=== PATIENT | female | born 1995 | race American Indian/Alaskan Native ===

== ENCOUNTER 2017-04-16 12:35 | Emergency (ER) | payer SELFPAY ==
[2017-04-16 13:19] VITALS: BP 125/87
--- NOTE | 2017-04-16 15:43 | Emergency Department Report ---
Eye Injury/Foreign Body - HPI Duration: 1 week Eye Location: Right Severity: Mild Tetanus Status: Up to Date Eye Symptoms: Eye Pain: Yes, Blurred Vision: Yes, Eye Redness: Yes, Grinding/ Hammering Metal: No, Used Eye Protection: No, Contact Lens Use: No, Recalls Injury: No, Photophobia: Yes Other History: 22-year-old female no past medical history presents with complaint of foreign body sensation right eye. Denies any direct eye trauma denies anything splashing into her eye. States she has had some redness and has foreign body sensation. Denies any facial swelling or any purulent drainage from eye. Tetanus is up-to-date as per patient ED Review of Systems ROS: Stated complaint: BLURRED VISION/BOTH EYES Other details as noted in HPI ED Past Medical Hx - Past Medical History Previous Medical History?: No - Surgical History Additional Surgical History: EXPLORATORY LAPAROTOMY - Social History Smoking Status: Current Some Day Smoker Substance Use Type: Alcohol - Medications Home Medications: Home Medications Medication Instructions Recorded Confirmed Last Taken Type Erythromycin [Erythromycin Ophth 10 applic OP BID #1 tube 04/16/17 Unknown Rx Oint] Glycerin/Propylene Glycol 1 drop OP Q4H #1 bottle 04/16/17 Unknown Rx [Artificial Tears Drops] Ibuprofen [Motrin] 600 mg PO Q8H PRN #30 tablet 04/16/17 Unknown Rx Eye Injury Exam - Exam General: Vital signs noted. No distress. Alert and acting appropriately. - Visual Acuity Left Vision Acuity Degree: 20/20 Right Vision Acuity Degree: 20/15 Eye Exam: Right Injection, Right Chemosis, Right Fluorescein Uptake (visible one to 2 cm corneal abrasion not overlying the pupil), Neither EOMI Bilateral Vision Acuity Degree: 20/15 Eye Exam: Left Injection, Right EOMI ED Course Vital Signs 04/16/17 13:13 Temperature 99.2 F Pulse Rate 74 Respiratory 17 Rate Blood Pressure 125/87 O2 Sat by Pulse 100 Oximetry ED Medical Decision Making - Medical Decision Making A/P: corneal abrasion 1-erythromycin ointment, Motrin when necessary artificial tears 2-vision is intact on exam 3-follow-up with ophthalmology Critical care attestation.: If time is entered above; I have spent that time in minutes in the direct care of this critically ill patient, excluding procedure time. ED Disposition Clinical Impression: Corneal abrasion, right Qualifiers: Encounter type: initial encounter Qualified Code(s): S05.01XA - Injury of conjunctiva and corneal abrasion without foreign body, right eye, initial encounter Disposition: TO HOME OR SELFCARE Is pt being admited?: No Does the pt Need Aspirin: No Condition: Stable Instructions: Corneal Abrasion (ED) Prescriptions: Erythromycin [Erythromycin Ophth Oint] 10 applic OP BID #1 tube Glycerin/Propylene Glycol [Artificial Tears Drops] 1 drop OP Q4H #1 bottle Ibuprofen [Motrin] 600 mg PO Q8H PRN #30 tablet PRN Reason: Pain Referrals: HAYDEN CODY MD [Staff Physician] - 3-5 Days GENARO WANG MD [Staff Physician] - 3-5 Days Forms: Work/School Release Form(ED) Time of Disposition: 16:10
[2017-04-16] MEDS ORDERED: FUL-GLO OP ONE (15:44)
[2017-04-16] MEDS ORDERED: MOTRIN PO ONE (15:44)
== END 2017-04-16 16:20 | disposition home or self-care (01) ==
LOC: ED 12:35
DX: S05.01XA Injury of conjunctiva and corneal abrasion without foreign body, right eye, initial encounter (principal); F17.200 Nicotine dependence, unspecified, uncomplicated; X58.XXXA Exposure to other specified factors, initial encounter; Y93.89 Activity, other specified; Y99.8 Other external cause status; Y92.89 Other specified places as the place of occurrence of the external cause
CPT/HCPCS: 99283

== ENCOUNTER 2017-05-26 13:43 | Emergency (ER) | payer SELFPAY ==
[2017-05-26 16:20] LABS: Alanine Aminotransferase 16 units/L (7-56); Albumin 4.1 g/dL (3.9-5); Albumin/Globulin Ratio 1.1 %; Alkaline Phosphatase 91 units/L (35-129); BUN/Creatinine Ratio 11.42; Blood Urea Nitrogen 8 mg/dL (7-17); Calcium 9.3 mg/dL (8.4-10.2); Carbon Dioxide 26 mmol/L (22-30); Glucose 87 mg/dL (65-100); Potassium 3.7 mmol/L (3.6-5.0); Sodium 139 mmol/L (137-145); Total Protein 7.9 g/dL (6.3-8.2)
[2017-05-26 16:27] LABS: Anion Gap 17 mmol/L
[2017-05-26 17:59] LABS: Basophils % (Auto) 0.6 % (0.0-1.8); Eosinophils % (Auto) 3.2 % (0.0-4.3); Hematocrit 33.7 % (30.3-42.9); Hemoglobin 10.5 gm/dl (10.1-14.3); Mean Corpuscular HGB Conc 31 % (30-34); Mean Corpuscular Hemoglobin 24 pg (28-32); Mean Corpuscular Volume 76 fl (79-97); Platelet Count 338 K/mm3 (140-440); Red Blood Count 4.45 M/mm3 (3.65-5.03); Red Cell Distribution Width 14.9 % (13.2-15.2); White Blood Count 4.4 K/mm3 (4.5-11.0)
[2017-05-26 18:11] LABS: Bilirubin,Urine SM (Negative); Blood,Urine LG (Negative); Ketones,Urine TR mg/dL (Negative); Leukocyte Esterase,Urine NEG (Negative); Mucus,Urine 3+ /HPF; Nitrite,Urine NEG (Negative)
--- NOTE | 2017-05-27 08:24 | Ultrasound Report ---
ULTRASOUND OB LESS THAN 14 WEEKS FETUS ULTRASOUND OB TRANSVAGINAL HISTORY: Vaginal bleeding, beta hCG level 71.5. TECHNIQUE: Transabdominal and transvaginal ultrasound with color and spectral doppler interrogation. The uterus measures 6.0 x 3.3 x 4.5 cm. No uterine mass is appreciated. The cervix is unremarkable. Trace pelvic fluid in the cul-de-sac appears physiologic. Images through the bladder are unremarkable. The endometrial stripe measures 6 mm. No intrauterine gestational sac or endometrial fluid is appreciated. No heart tones. The right ovary is unremarkable and measures 3.0 x 1.3 x 2.9 cm. The left ovary measures 3.1 x 2.7 x 2.9 cm and contains a slightly complex solid area measuring 1.3 cm which probably represents a corpus luteum cyst. No pole or ring of fire in this area. IMPRESSION: No intrauterine is visualized. The endometrial stripe measures 6 mm. This may represent a spontaneous . Please correlate with the patient's clinical presentation. Probable corpus luteum cyst in the left ovary.
== END 2017-05-27 08:01 | disposition left against medical advice (07) ==
LOC: ED 13:43
DX: O46.90 Antepartum hemorrhage, unspecified, unspecified trimester (principal); Z53.21 Procedure and treatment not carried out due to patient leaving prior to being seen by health care provider
CPT/HCPCS: 36415; 76801; 76817; 80053; 81001; 84702; 85025; 86900; 86901

== ENCOUNTER 2020-05-15 15:20 | Outpatient (CLI) | payer MEDICAID ==
[2020-05-15 15:59] VITALS: BP 111/63
[2020-05-15 16:52] LABS: Mucus,Urine 2+ /HPF
[2020-05-15 16:53] LABS: Bilirubin,Urine NEG (Negative); Blood,Urine NEG (Negative); Color,Urine Amber (Yellow)
[2020-05-15] MEDS ORDERED: LACTATED RINGERS 1,000 ML IV SCH (17:00)
== END 2020-05-15 17:26 | disposition home or self-care (01) ==
LOC: APU 15:20 → TRG 15:20
PROVIDERS: ATTEND Obstetrics & Gynecology
DX: O26.893 Other specified pregnancy related conditions, third trimester (principal); R10.2 Pelvic and perineal pain; M54.9 Dorsalgia, unspecified; O47.03 False labor before 37 completed weeks of gestation, third trimester; Z3A.37 37 weeks gestation of pregnancy
CPT/HCPCS: 59025; 81001; 96360; J7120

== ENCOUNTER 2020-05-17 09:32 | Outpatient (CLI) | payer MEDICAID ==
[2020-05-17 10:07] VITALS: BP 120/74
--- NOTE | 2020-05-17 12:06 | Ultrasound Report ---
ULTRASOUND OBSTETRIC LIMITED ULTRASOUND BIOPHYSICAL PROFILE INDICATION / CLINICAL INFORMATION: well being, decreased movement. COMPARISON: None available. FINDINGS: BREATHING MOVEMENT = 2 GROSS BODY MOVEMENT = 2 TONE = 2 QUALITATIVE AMNIOTIC FLUID VOLUME = 2 TOTAL BIOPHYSICAL SCORE = 8/8 AMNIOTIC FLUID INDEX (cm) = 12 PRESENTATION: Cephalic. HEART RATE (beats per minute): 143 ADDITIONAL FINDINGS: None. IMPRESSION: 1. Biophysical Score = 8/8 Signer Name: Abelardo Richardson MD Signed: 05/17/2020 12:02 PM Workstation Name: [id number]
--- NOTE | 2020-05-17 12:06 | Ultrasound Report ---
ULTRASOUND OBSTETRIC LIMITED ULTRASOUND BIOPHYSICAL PROFILE INDICATION / CLINICAL INFORMATION: well being, decreased movement. COMPARISON: None available. FINDINGS: BREATHING MOVEMENT = 2 GROSS BODY MOVEMENT = 2 TONE = 2 QUALITATIVE AMNIOTIC FLUID VOLUME = 2 TOTAL BIOPHYSICAL SCORE = 8/8 AMNIOTIC FLUID INDEX (cm) = 12 PRESENTATION: Cephalic. HEART RATE (beats per minute): 143 ADDITIONAL FINDINGS: None. IMPRESSION: 1. Biophysical Score = 8/8 Signer Name: Abelardo Richardson MD Signed: 05/17/2020 12:01 PM Workstation Name: [id number]
== END 2020-05-17 11:44 | disposition home or self-care (01) ==
LOC: APU 09:32 → TRG 09:32
PROVIDERS: ATTEND Obstetrics & Gynecology
DX: O36.8130 Decreased fetal movements, third trimester, not applicable or unspecified (principal); Z3A.36 36 weeks gestation of pregnancy
CPT/HCPCS: 59025; 76815; 76819

== ENCOUNTER 2020-06-21 20:30 | Inpatient (IN) | payer MEDICAID ==
--- NOTE | 2020-06-21 20:56 | History and Physical Report ---
History of Present Illness Date of examination: 06/21/20 Date of admission: 06/21/20 20:30 Chief complaint: here for IOL History of present illness: Pt presents for IOL. no c/o at this time. EFW on 06/06/20 was 8lbs 15oz EDC Confirmation: 06/12/2020 Gestational Age: 5 2/7 weeks Past History : 2 Term Births: 0 Premature Births: 0 Living Children: 0 Para: 0 Mult. Births: 0 Prev : 0 Aborta: 1 Elect. Ab: 0 Spont. Ab: 1 Ectopics: 0 # 1 Delivery date: 05/25/2017 Weeks Gestation: 6 Past Medical History: Reviewed history from 11/27/2018 and no changes required: Negative Past Medical History Past Surgical History: Reviewed history from 07/22/2017 and no changes required: expl. lap. left ovarian mass. 2016 Past Medical History Surgery (Non-biological chemist): expl. lap. left ovarian mass. 2016 Abnormal PAP: negative KRISTIN Exposure: negative Infertility: negative Uterine Anomaly: negative Uterine Surgery (not C/S): negative Other Gynecologic Problems: negative Social Hx: Patient is single bf x 2 years. 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 Infection History Hx of STD: none HIV Risk Eval: low risk Hepatitis B Risk Eval: low risk Genetic History Congenital Heart Defect: Mom: no Dad: no Chandler Disease: Mom: no Dad: no Thalassemia Mom: no Dad: no Neural Tube Defect Mom: no Dad: no Down's Syndrome Mom: no Dad: no Jean Paul-Sachs Mom: no Dad: no Sickle Cell Disease/Trait Mom: no Dad: no Hemophilia Mom: no Dad: no Muscular Dystrophy Mom: no Dad: no Cystic Fibrosis Mom: no Dad: no [place] Chorea Mom: no Dad: no Mental Retardation Mom: no Dad: no Fragile X Mom: no Dad: no Other Genetic/Chromosomal Disorder Mom: no Dad: no Child w/other defect Mom: no Dad: no Enviromental Exposures Xray Exposure: no Medication, drug, or alcohol use since LMP: no Chemical/Other Exposure: no Exposure to Cat Liter: no Hx of Parvovirus (Fifth Disease): no Occupational Exposure to Children: none Active Medications (reviewed today): DEPO-PROVERA 150 MG/ML INTRAMUSCULAR SUSPENSION PREFILLED SYRINGE (MEDROXYPROGESTERONE ACETATE) Bring to office for administration of injection BORIC ACID POWD (BORIC ACID) VAG SUPP 600 MG () 1 daily x 7days Current Allergies (reviewed today): No known allergies Past History Past Medical History: no pertinent history Past Surgical History: other (laproscopy for ovarian cyst) 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: 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: abnormal PAP smear Family/Genetic History: none - Obstetrical History Expected Date of Delivery: 06/12/20 Actual Gestation: 41 Week(s) 2 Day(s) : 1 Medications and Allergies Allergies Allergy/AdvReac Type Severity Reaction Status Date / Time No Known Allergies Allergy Verified 04/16/17 13:19 Home Medications Medication Instructions Recorded Confirmed Last Taken Type Erythromycin [Erythromycin Ophth 10 applic OP BID #1 tube 04/16/17 06/21/20 Unknown Rx Oint] Glycerin/Propylene Glycol 1 drop OP Q4H #1 bottle 04/16/17 06/21/20 Unknown Rx [Artificial Tears Drops] Ibuprofen [Motrin] 600 mg PO Q8H PRN #30 tablet 04/16/17 06/21/20 Unknown Rx Review of Systems All systems: negative - Obstetrical FHR: category 1 Cervical Dilatation: 1.5 (mid position/soft) Cervical Effacement Percentage: 60 station: -1 Results All other labs normal. Assessment and Plan - Patient Problems (1) 41 weeks gestation of Current Visit: Yes Status: Acute Plan to address problem: admit for iol start antibx for posiitve gbs status (2) Positive GBS test Current Visit: Yes Status: Acute Plan to address problem: -start antibx
[2020-06-21] MEDS ORDERED: AMPICILLIN/NS 2 GM/100 ML 2 GM/100 ML BAG IV ONE (21:17)
[2020-06-21] MEDS ORDERED: ACETAMINOPHEN 325 MG TAB PO PRN (21:17)
[2020-06-21] MEDS ORDERED: ePHEDrine SULFATE 50 MG/1 ML INJ IV PRN (21:17)
[2020-06-21] MEDS ORDERED: MINERAL OIL 30 ML ORAL LIQD PO PRN (21:17)
[2020-06-21] MEDS ORDERED: LIDOCAINE (2%) 20 MG/1 ML VIAL 20 ML MDV INFILTRATI ONE (21:17)
[2020-06-21] MEDS ORDERED: TERBUTALINE 1 MG/1 ML INJ SUB-Q PRN (21:17)
[2020-06-21] MEDS ORDERED: DINOPROSTONE 10 MG VAG SUPP VG ONE (23:00)
[2020-06-21 23:09] LABS: Hemoglobin 7.8 gm/dl (10.1-14.3); Mean Corpuscular HGB Conc 31 % (30-34); Mean Corpuscular Volume 72 fl (79-97); Platelet Count 274 K/mm3 (140-440); Red Blood Count 3.45 M/mm3 (3.65-5.03); Red Cell Distribution Width 17.2 % (13.2-15.2)
[2020-06-21] MEDS ORDERED: OXYTOCIN DRIP 30 UNITS/500 ML BAG IV SCH (23:45)
[2020-06-21] MEDS: LACTATED RINGERS 1,000 ML IV SCH (23:54)
--- NOTE | 2020-06-22 00:39 | Event Note ---
Date: 06/22/20 Informed that there is no cervidil in the hospital. Will start low dose pitocin at this time.
[2020-06-22] MEDS: AMPICILLIN/NS 1 GM/50 ML 1 GM/50 ML BAG IV SCH ×5 (04:10→23:18)
--- NOTE | 2020-06-22 08:13 | Progress Note ---
Assessment and Plan plan for AM care and breakfast, then will start active management of pitocin for IOL. Plan discussed with patient and RN. all questions addressed. - Patient Problems (1) 41 weeks gestation of Current Visit: Yes Status: Acute (2) Positive GBS test Current Visit: Yes Status: Acute Plan to address problem: Ampicillin q4hr in active labor Subjective - Subjective Date of service: 06/22/20 Principal diagnosis: 41+3 IOL for postdates; pitocin Patient reports: movement normal, contractions, no loss of fluid, no vaginal bleeding Objective - Vital Signs Vital Signs: Vital Signs - 12hr 06/21/20 06/21/20 06/21/20 21:50 23:55 23:57 Temperature 98.3 F Pulse Rate 78 82 82 Respiratory 18 Rate Blood Pressure 134/83 114/58 Blood Pressure 114/58 [Left] 06/22/20 06/22/20 06/22/20 08:00 08:01 08:02 Temperature 98.4 F Pulse Rate 68 81 68 Respiratory 18 Rate Blood Pressure 147/83 131/79 Blood Pressure 131/79 [Left] - Exam Breasts: normal Cardiovascular: Regular rate Lungs: Normal air movement Abdomen: Present: normal appearance, soft Vulva: both: normal Uterus: Present: normal, fundal height above umbilicus FHR: auscultation normal, category 1 Uterine Contraction Monitor Mode: External Cervical Dilatation: 2 Cervical Effacement Percentage: 70 station: -3 Uterine Contraction Pattern: Regular Uterine Tone Measurement Phase: Contraction Uterine Contraction Intensity: Mild Extremities: normal Deep Tendon Reflex Grade: Normal +2 - Labs Labs: Abnormal Labs 06/21/20 Unknown RBC 3.45 L Hgb 7.8 L Hct 25.0 L MCV 72 L MCH 22 L RDW 17.2 H Laboratory Results - last 24 hr 06/21/20 06/21/20 Unknown Unknown WBC 5.2 RBC 3.45 L Hgb 7.8 L Hct 25.0 L MCV 72 L MCH 22 L MCHC 31 RDW 17.2 H Plt Count 274 Blood Type O POSITIVE Antibody Screen Negative
[2020-06-22] MEDS ORDERED: OXYTOCIN DRIP 30 UNITS/500 ML BAG IV SCH (09:00)
[2020-06-22] MEDS: LACTATED RINGERS 1,000 ML IV SCH ×3 (11:55→23:19)
[2020-06-22] MEDS ORDERED: BUTORPHANOL 2 MG/1 ML INJ IV ONE (15:00)
[2020-06-22] MEDS ORDERED: fentaNYL 100 MCG/2 ML INJ IV ONE (18:46)
[2020-06-22] MEDS ORDERED: DEXMEDETOMIDINE 200 MCG/2 ML VIAL IV ONE (21:09)
[2020-06-22] MEDS ORDERED: fentaNYL-BUPIV 2 MCG/ML-0.125% 200 MCG/100 ML BAG EPIDURAL ONE (22:01)
[2020-06-22] MEDS ORDERED: NALOXONE 2 MG/2 ML INJ IV PRN (22:10)
[2020-06-22] MEDS ORDERED: ePHEDrine SULFATE 50 MG/1 ML INJ IV PRN (22:10)
--- NOTE | 2020-06-22 22:12 | Progress Note ---
Assessment and Plan pt resting comfortably after epidural placement, SVE unchanged. Will reeval in 2 hours for cervical change. Discussed with patient expectations of cervical change for labor & inductions, concerned that size of baby (EFW 8#15) could be preventing baby from descending into pelvis further and putting pressure on cervix. Patient and s/o made aware that an operative would be needed if baby shows signs of distress or if cervix doesn't make any more change. Dr. Greer made aware. Nurses to continue repositioning w/ peanut ball and titrating pitocin as needed for adequate labor. - Patient Problems (1) 41 weeks gestation of Current Visit: Yes Status: Acute (2) Positive GBS test Current Visit: Yes Status: Acute Plan to address problem: Ampicillin q4hr in active labor Subjective - Subjective Date of service: 06/22/20 Principal diagnosis: 41+3 IOL for postdates; pitocin Patient reports: no new complaints (comfortable with epidural) Objective - Vital Signs Vital Signs: Vital Signs - 12hr 06/22/20 06/22/20 06/22/20 10:38 11:56 12:26 Pulse Rate 81 81 82 Respiratory Rate Blood Pressure 133/77 130/77 135/68 O2 Sat by Pulse Oximetry 06/22/20 06/22/20 06/22/20 12:57 13:26 13:58 Pulse Rate 82 88 96 H Respiratory Rate Blood Pressure 131/65 129/84 130/67 O2 Sat by Pulse Oximetry 06/22/20 06/22/20 06/22/20 14:28 15:11 15:16 Pulse Rate 80 91 H 82 Respiratory Rate Blood Pressure 136/69 144/90 O2 Sat by Pulse 98 100 Oximetry 06/22/20 06/22/20 06/22/20 15:21 15:26 15:31 Pulse Rate 74 83 78 Respiratory Rate Blood Pressure O2 Sat by Pulse 100 100 100 Oximetry 06/22/20 06/22/20 06/22/20 15:36 15:41 15:46 Pulse Rate 70 71 71 Respiratory Rate Blood Pressure O2 Sat by Pulse 100 99 99 Oximetry 06/22/20 06/22/20 06/22/20 15:51 15:56 16:01 Pulse Rate 71 80 73 Respiratory Rate Blood Pressure O2 Sat by Pulse 100 99 100 Oximetry 06/22/20 06/22/20 06/22/20 16:06 16:11 16:16 Pulse Rate 77 91 H 78 Respiratory Rate Blood Pressure O2 Sat by Pulse 100 100 99 Oximetry 06/22/20 06/22/20 06/22/20 16:21 16:26 16:31 Pulse Rate 75 73 69 Respiratory Rate Blood Pressure O2 Sat by Pulse 99 98 99 Oximetry 06/22/20 06/22/20 06/22/20 16:36 16:39 16:41 Pulse Rate 78 72 75 Respiratory Rate Blood Pressure 135/80 O2 Sat by Pulse 99 98 Oximetry 06/22/20 06/22/20 06/22/20 16:46 16:50 16:51 Pulse Rate 76 92 H 81 Respiratory Rate Blood Pressure O2 Sat by Pulse 100 90 97 Oximetry 06/22/20 06/22/20 06/22/20 16:56 16:58 17:01 Pulse Rate 88 89 80 Respiratory Rate Blood Pressure O2 Sat by Pulse 98 94 100 Oximetry 06/22/20 06/22/20 06/22/20 17:06 17:11 17:16 Pulse Rate 83 78 74 Respiratory Rate Blood Pressure 138/84 O2 Sat by Pulse 97 98 100 Oximetry 06/22/20 06/22/20 06/22/20 17:21 17:26 17:31 Pulse Rate 86 82 74 Respiratory Rate Blood Pressure O2 Sat by Pulse 100 100 100 Oximetry 06/22/20 06/22/20 06/22/20 17:36 17:41 17:46 Pulse Rate 83 87 89 Respiratory Rate Blood Pressure O2 Sat by Pulse 100 100 99 Oximetry 06/22/20 06/22/20 06/22/20 17:51 17:55 17:56 Pulse Rate 88 81 87 Respiratory Rate Blood Pressure O2 Sat by Pulse 100 81 L 90 Oximetry 06/22/20 06/22/20 06/22/20 18:01 18:06 18:07 Pulse Rate 91 H 79 79 Respiratory Rate Blood Pressure O2 Sat by Pulse 100 100 94 Oximetry 06/22/20 06/22/20 06/22/20 18:11 18:13 18:16 Pulse Rate 85 85 89 Respiratory Rate Blood Pressure O2 Sat by Pulse 91 90 99 Oximetry 06/22/20 06/22/20 06/22/20 18:19 18:21 19:05 Pulse Rate 73 86 Respiratory 18 Rate Blood Pressure O2 Sat by Pulse 92 87 Oximetry 06/22/20 06/22/2006/22/20 19:12 19:17 19:22 Pulse Rate 80 75 83 Respiratory Rate Blood Pressure O2 Sat by Pulse 100 100 99 Oximetry 06/22/20 06/22/20 06/22/20 19:27 19:32 19:37 Pulse Rate 77 74 79 Respiratory Rate Blood Pressure O2 Sat by Pulse 100 100 100 Oximetry 06/22/20 06/22/20 06/22/20 19:42 19:47 19:52 Pulse Rate 85 77 79 Respiratory Rate Blood Pressure O2 Sat by Pulse 100 99 98 Oximetry 06/22/20 06/22/20 06/22/20 19:57 20:02 20:07 Pulse Rate 87 83 86 Respiratory Rate Blood Pressure O2 Sat by Pulse 100 100 100 Oximetry 06/22/20 06/22/20 06/22/20 20:11 20:12 20:17 Pulse Rate 88 80 79 Respiratory Rate Blood Pressure 154/92 O2 Sat by Pulse 99 100 Oximetry 06/22/20 06/22/20 06/22/20 20:22 20:27 20:32 Pulse Rate 85 95 H 91 H Respiratory Rate Blood Pressure O2 Sat by Pulse 100 100 98 Oximetry 06/22/20 06/22/20 06/22/20 20:37 20:42 20:47 Pulse Rate 92 H 86 90 Respiratory Rate Blood Pressure O2 Sat by Pulse 100 100 100 Oximetry 06/22/20 06/22/20 06/22/20 21:11 21:17 21:21 Pulse Rate 97 H 109 H 92 H Respiratory Rate Blood Pressure 126/80 153/82 O2 Sat by Pulse 100 100 Oximetry 06/22/20 06/22/20 06/22/20 21:22 21:24 21:27 Pulse Rate 87 97 H 92 H Respiratory Rate Blood Pressure 154/83 153/79 O2 Sat by Pulse 100 100 Oximetry 06/22/20 06/22/20 06/22/20 21:29 21:30 21:32 Pulse Rate 86 83 84 Respiratory Rate Blood Pressure 148/74 148/74 O2 Sat by Pulse 99 Oximetry 06/22/20 06/22/20 06/22/20 21:33 21:36 21:37 Pulse Rate 85 79 79 Respiratory Rate Blood Pressure 135/66 130/62 O2 Sat by Pulse 100 Oximetry 06/22/20 06/22/20 06/22/20 21:39 21:42 21:46 Pulse Rate 77 84 72 Respiratory Rate Blood Pressure 117/55 127/58 126/63 O2 Sat by Pulse 100 Oximetry 06/22/20 06/22/20 06/22/20 21:47 21:48 21:51 Pulse Rate 67 67 81 Respiratory Rate Blood Pressure 133/72 129/68 O2 Sat by Pulse 100 Oximetry 06/22/20 06/22/20 06/22/20 21:52 21:54 21:57 Pulse Rate 70 76 89 Respiratory Rate Blood Pressure 131/75 125/73 O2 Sat by Pulse 100 99 Oximetry 06/22/20 06/22/20 06/22/20 22:00 22:02 22:03 Pulse Rate 80 80 79 Respiratory Rate Blood Pressure 127/69 125/66 O2 Sat by Pulse 99 Oximetry 06/22/20 06/22/20 06/22/20 22:06 22:07 22:09 Pulse Rate 78 79 76 Respiratory Rate Blood Pressure 119/65 120/60 O2 Sat by Pulse 98 Oximetry - Exam Breasts: normal Cardiovascular: Regular rate Lungs: Normal air movement Abdomen: Present: normal appearance, soft Vulva: both: normal Uterine Contraction Monitor Mode: Internal Cervical Dilatation: 3.5 Cervical Effacement Percentage: 60 station: -2 Uterine Contraction Frequency (min): 3-5 Uterine Contraction Duration: 60 Uterine Contraction Pattern: Regular Uterine Tone Measurement Phase: Contraction Uterine Contraction Intensity: Moderate Extremities: normal Deep Tendon Reflex Grade: Normal +2 - Labs Labs: Abnormal Labs 06/21/20 Unknown RBC 3.45 L Hgb 7.8 L Hct 25.0 L MCV 72 L MCH 22 L RDW 17.2 H Laboratory Results - last 24 hr 06/21/20 06/21/20 06/22/20 Unknown Unknown 10:28 WBC 5.2 RBC 3.45 L Hgb 7.8 L Hct 25.0 L MCV 72 L MCH 22 L MCHC 31 RDW 17.2 H Plt Count 274 Coronavirus (PCR) Negative Blood Type O POSITIVE Antibody Screen Negative
--- NOTE | 2020-06-22 22:14 | Anesthesia Consultation ---
Anesthesia Consult and Med Hx Date of service: 06/22/20 - Airway Anesthetic Teeth Evaluation: Good ROM Head & Neck: Adequate Mental/Hyoid Distance: Adequate Mallampati Class: Class II Intubation Access Assessment: Good - Pulmonary Exam CTA: Yes - Cardiac Exam Cardiac Exam: RRR - Pre-Operative Health Status ASA Pre-Surgery Classification: ASA2 Proposed Anesthetic Plan: Epidural - Pulmonary Hx Smoking: No Hx Asthma: No Hx Respiratory Symptoms: No SOB: No COPD: No Home Oxygen Therapy: No Hx Pneumonia: No Hx Sleep Apnea: No - Cardiovascular System Hx Hypertension: No Hx Coronary Artery Disease: No Hx Heart Attack/AMI: No Hx Angina: No Hx Percutaneous Transluminal Coronary Angioplasty (PTCA): No Hx Cardia Arrhythmia: No Hx Pacemaker: No Hx Internal Defibrillator: No Hx Valvular Heart Disease: No Hx Heart Murmur: No Hx Peripheral Vascular Disease: No - Central Nervous System Hx Neuromuscular Disorder: Yes (leg cramping) Hx Seizures: No CVA: No Hx Back Pain: Yes Hx Psychiatric Problems: No - Gastrointestinal Hx Ulcer: No Hx Gastroesophageal Reflux Disease: Yes - Endocrine Hx Renal Disease: No Hx End Stage Renal Disease: No Hx Cirrhosis: No Hx Liver Disease: No Hx Insulin Dependent Diabetes: No Hx Non-Insulin Dependent Diabetes: No Hx Thyroid Disease: No Hx Hypothyroidism: No Hx Hyperthyroidism: No - Hematic Hx Anemia: No Hx Sickle Cell Disease: No - Other Systems Hx Alcohol Use: No Hx Substance Use: No Hx Cancer: No Hx Obesity: Yes
[2020-06-22] MEDS ORDERED: fentaNYL-BUPIV 2 MCG/ML-0.125% 200 MCG/100 ML BAG EPIDURAL SCH (23:00)
--- NOTE | 2020-06-22 23:22 | Progress Note ---
Labor Epidural - Labor Epidural Start Time: 21:12 Stop Time: 21:28 Performed by:: JOSUE ESCALANTE Procedure: Patient is requesting a laboring epidural for laboring pain. Patient IDed, H&P reviewed, all questions and concerns were answered, and consent was signed. Timeout was performed at bedside. Patient in sitting position. Sterile prep and drape was performed. [3] ml of 1% lidocaine skin wheal at L[3]- L [4]. 18- gauge Tuohy epidural needle was advanced to loss of resistance with air technique to 6cm. Negative CSF negative blood via Tuohy needle. #27g Spinal needle clear, free flowing CSF, Pecedex 10 mcg. Epidural catheter advanced to [10] centimeters. [negative] Aspiration [negative] test dose. Sterile dressing applied. Patient tolerated procedure.
--- NOTE | 2020-06-23 02:37 | Progress Note ---
Assessment and Plan patient was checked @ midnight and made change to 5/100/-2, fht cat 1 and pitocin was infusing @ 22U. She was reexamined 2 hours later w/o change. MVU's now less than 100 and pitocin was found to off. Akashut noted during SVE. patient states " I just don't feel like he is going to come down any lower." Discussed continuing IOL vs c/s, including risks of operative . Patient states she wants to proceed with c/s. Dr. Greer notified. Consents signed and pre-op orders in EMR. - Patient Problems (1) 41 weeks gestation of Current Visit: Yes Status: Acute (2) Positive GBS test Current Visit: Yes Status: Acute (3) Failure to progress in labor Current Visit: Yes Status: Acute Plan to address problem: prepping for c/s Subjective - Subjective Date of service: 06/23/20 Principal diagnosis: 41+3 IOL for postdates; pitocin Patient reports: no new complaints (comfortable with epidural) Objective - Vital Signs Vital Signs: Vital Signs - 12hr 06/22/20 06/22/20 06/22/20 15:11 15:16 15:21 Temperature Pulse Rate 91 H 82 74 Respiratory Rate Blood Pressure 144/90 O2 Sat by Pulse 98 100 100 Oximetry 06/22/20 06/22/20 06/22/20 15:26 15:31 15:36 Temperature Pulse Rate 83 78 70 Respiratory Rate Blood Pressure O2 Sat by Pulse 100 100 100 Oximetry 06/22/20 06/22/20 06/22/20 15:41 15:46 15:51 Temperature Pulse Rate 71 71 71 Respiratory Rate Blood Pressure O2 Sat by Pulse 99 99 100 Oximetry 06/22/20 06/22/20 06/22/20 15:56 16:01 16:06 Temperature Pulse Rate 80 73 77 Respiratory Rate Blood Pressure O2 Sat by Pulse 99 100 100 Oximetry 06/22/20 06/22/20 06/22/20 16:11 16:16 16:21 Temperature Pulse Rate 91 H 78 75 Respiratory Rate Blood Pressure O2 Sat by Pulse 100 99 99 Oximetry 06/22/20 06/22/20 06/22/20 16:26 16:31 16:36 Temperature Pulse Rate 73 69 78 Respiratory Rate Blood Pressure O2 Sat by Pulse 98 99 99 Oximetry 06/22/20 06/22/20 06/22/20 16:39 16:41 16:46 Temperature Pulse Rate 72 75 76 Respiratory Rate Blood Pressure 135/80 O2 Sat by Pulse 98 100 Oximetry 06/22/20 06/22/20 06/22/20 16:50 16:51 16:56 Temperature Pulse Rate 92 H 81 88 Respiratory Rate Blood Pressure O2 Sat by Pulse 90 97 98 Oximetry 06/22/20 06/22/20 06/22/20 16:58 17:01 17:06 Temperature Pulse Rate 89 80 83 Respiratory Rate Blood Pressure O2 Sat by Pulse 94 100 97 Oximetry 06/22/20 06/22/20 06/22/20 17:11 17:16 17:21 Temperature Pulse Rate 78 74 86 Respiratory Rate Blood Pressure 138/84 O2 Sat by Pulse 98 100 100 Oximetry 06/22/20 06/22/20 06/22/20 17:26 17:31 17:36 Temperature Pulse Rate 82 74 83 Respiratory Rate Blood Pressure O2 Sat by Pulse 100 100 100 Oximetry 06/22/20 06/22/20 06/22/20 17:41 17:46 17:51 Temperature Pulse Rate 87 89 88 Respiratory Rate Blood Pressure O2 Sat by Pulse 100 99 100 Oximetry 06/22/20 06/22/20 06/22/20 17:55 17:56 18:01 Temperature Pulse Rate 81 87 91 H Respiratory Rate Blood Pressure O2 Sat by Pulse 81 L 90 100 Oximetry 06/22/20 06/22/20 06/22/20 18:06 18:07 18:11 Temperature Pulse Rate 79 79 85 Respiratory Rate Blood Pressure O2 Sat by Pulse 100 94 91 Oximetry 06/22/20 06/22/20 06/22/20 18:13 18:16 18:19 Temperature Pulse Rate 85 89 73 Respiratory Rate Blood Pressure O2 Sat by Pulse 90 99 92 Oximetry 06/22/20 06/22/20 06/22/20 18:21 19:05 19:12 Temperature Pulse Rate 86 80 Respiratory 18 Rate Blood Pressure O2 Sat by Pulse 87 100 Oximetry 06/22/20 06/22/20 06/22/20 19:17 19:22 19:27 Temperature Pulse Rate 75 83 77 Respiratory Rate Blood Pressure O2 Sat by Pulse 100 99 100 Oximetry 06/22/20 06/22/20 06/22/20 19:32 19:37 19:42 Temperature Pulse Rate 74 79 85 Respiratory Rate Blood Pressure O2 Sat by Pulse 100 100 100 Oximetry 06/22/20 06/22/20 06/22/20 19:47 19:52 19:57 Temperature Pulse Rate 77 79 87 Respiratory Rate Blood Pressure O2 Sat by Pulse 99 98 100 Oximetry 06/22/20 06/22/20 06/22/20 20:02 20:07 20:11 Temperature Pulse Rate 83 86 88 Respiratory Rate Blood Pressure 154/92 O2 Sat by Pulse 100 100 Oximetry 06/22/20 06/22/20 06/22/20 20:12 20:17 20:22 Temperature Pulse Rate 80 79 85 Respiratory Rate Blood Pressure O2 Sat by Pulse 99 100 100 Oximetry 06/22/20 06/22/20 06/22/20 20:27 20:32 20:37 Temperature Pulse Rate 95 H 91 H 92 H Respiratory Rate Blood Pressure O2 Sat by Pulse 100 98 100 Oximetry 06/22/20 06/22/20 06/22/20 20:42 20:47 21:11 Temperature Pulse Rate 86 90 97 H Respiratory Rate Blood Pressure 126/80 O2 Sat by Pulse 100 100 100 Oximetry 06/22/20 06/22/20 06/22/20 21:17 21:21 21:22 Temperature Pulse Rate 109 H 92 H 87 Respiratory Rate Blood Pressure 153/82 O2 Sat by Pulse 100 100 Oximetry 06/22/20 06/22/20 06/22/20 21:24 21:27 21:29 Temperature Pulse Rate 97 H 92 H 86 Respiratory Rate Blood Pressure 154/83 153/79 148/74 O2 Sat by Pulse 100 Oximetry 06/22/20 06/22/20 06/22/20 21:30 21:32 21:33 Temperature Pulse Rate 83 84 85 Respiratory Rate Blood Pressure 148/74 135/66 O2 Sat by Pulse 99 Oximetry 06/22/20 06/22/20 06/22/20 21:36 21:37 21:39 Temperature Pulse Rate 79 79 77 Respiratory Rate Blood Pressure 130/62 117/55 O2 Sat by Pulse 100 Oximetry 06/22/20 06/22/20 06/22/20 21:42 21:46 21:47 Temperature Pulse Rate 84 72 67 Respiratory Rate Blood Pressure 127/58 126/63 O2 Sat by Pulse 100 100 Oximetry 06/22/20 06/22/20 06/22/20 21:48 21:51 21:52 Temperature Pulse Rate 67 81 70 Respiratory Rate Blood Pressure 133/72 129/68 O2 Sat by Pulse 100 Oximetry 06/22/20 06/22/20 06/22/20 21:54 21:57 22:00 Temperature Pulse Rate 76 89 80 Respiratory Rate Blood Pressure 131/75 125/73 127/69 O2 Sat by Pulse 99 Oximetry 06/22/20 06/22/20 06/22/20 22:02 22:03 22:06 Temperature Pulse Rate 80 79 78 Respiratory Rate Blood Pressure 125/66 119/65 O2 Sat by Pulse 99 Oximetry 06/22/20 06/22/20 06/22/20 22:07 22:09 22:12 Temperature Pulse Rate 79 76 81 Respiratory 12 Rate Blood Pressure 120/60 121/65 O2 Sat by Pulse 98 98 Oximetry 06/22/20 06/22/20 06/22/20 22:15 22:17 22:18 Temperature Pulse Rate 82 94 H 93 H Respiratory Rate Blood Pressure 126/70 118/63 O2 Sat by Pulse 98 Oximetry 06/22/20 06/22/20 06/22/20 22:21 22:22 22:24 Temperature Pulse Rate 82 78 76 Respiratory Rate Blood Pressure 124/61 128/67 O2 Sat by Pulse 98 Oximetry 06/22/20 06/22/20 06/22/20 22:27 22:30 22:32 Temperature Pulse Rate 83 80 84 Respiratory Rate Blood Pressure 108/55 123/56 O2 Sat by Pulse 100 99 Oximetry 06/22/20 06/22/20 06/22/20 22:33 22:36 22:37 Temperature Pulse Rate 85 71 81 Respiratory Rate Blood Pressure 126/61 132/61 O2 Sat by Pulse 100 Oximetry 06/22/20 06/22/20 06/22/20 22:39 22:42 22:45 Temperature Pulse Rate 75 73 73 Respiratory Rate Blood Pressure 137/65 139/66 132/62 O2 Sat by Pulse 100 Oximetry 06/22/20 06/22/20 06/22/20 22:47 22:48 22:51 Temperature Pulse Rate 74 74 75 Respiratory Rate Blood Pressure 137/65 137/67 O2 Sat by Pulse 100 Oximetry 06/22/20 06/22/20 06/22/20 22:52 22:54 22:57 Temperature Pulse Rate 80 77 76 Respiratory Rate Blood Pressure 133/73 133/70 O2 Sat by Pulse 100 100 Oximetry 06/22/20 06/22/20 06/22/20 23:00 23:02 23:03 Temperature Pulse Rate 74 74 71 Respiratory Rate Blood Pressure 127/60 134/64 O2 Sat by Pulse 100 Oximetry 06/22/20 06/22/20 06/22/20 23:06 23:07 23:09 Temperature Pulse Rate 80 73 78 Respiratory Rate Blood Pressure 124/59 131/63 O2 Sat by Pulse 100 Oximetry 06/22/20 06/22/20 06/22/20 23:12 23:15 23:17 Temperature Pulse Rate 79 75 92 H Respiratory Rate Blood Pressure 125/60 131/61 O2 Sat by Pulse 100 100 Oximetry 06/22/20 06/22/20 06/22/20 23:18 23:21 23:22 Temperature Pulse Rate 75 80 78 Respiratory Rate Blood Pressure 125/61 130/62 O2 Sat by Pulse 100 Oximetry 06/22/20 06/22/20 06/22/20 23:24 23:27 23:30 Temperature Pulse Rate 78 75 68 Respiratory Rate Blood Pressure 129/64 134/75 135/76 O2 Sat by Pulse 100 Oximetry 06/22/20 06/22/20 06/22/20 23:32 23:33 23:36 Temperature Pulse Rate 68 68 67 Respiratory Rate Blood Pressure 139/76 135/74 O2 Sat by Pulse 100 Oximetry 06/22/20 06/22/20 06/22/20 23:37 23:39 23:42 Temperature Pulse Rate 78 75 74 Respiratory Rate Blood Pressure 132/68 138/70 O2 Sat by Pulse 100 100 Oximetry 06/22/20 06/22/20 06/22/20 23:47 23:52 23:57 Temperature Pulse Rate 72 74 69 Respiratory Rate Blood Pressure O2 Sat by Pulse 100 100 100 Oximetry 06/23/20 06/23/20 06/23/20 00:02 00:07 00:12 Temperature Pulse Rate 69 77 79 Respiratory Rate Blood Pressure 125/60 O2 Sat by Pulse 100 100 100 Oximetry 06/23/20 06/23/20 06/23/20 00:17 00:22 00:27 Temperature Pulse Rate 76 81 83 Respiratory Rate Blood Pressure O2 Sat by Pulse 100 100 100 Oximetry 06/23/20 06/23/20 06/23/20 00:32 00:37 00:42 Temperature Pulse Rate 83 81 83 Respiratory Rate Blood Pressure 129/62 O2 Sat by Pulse 100 100 100 Oximetry 06/23/20 06/23/20 06/23/20 00:47 00:52 00:57 Temperature Pulse Rate 86 87 82 Respiratory Rate Blood Pressure O2 Sat by Pulse 100 100 100 Oximetry 06/23/20 06/23/20 06/23/20 01:02 01:07 01:13 Temperature Pulse Rate 79 78 76 Respiratory Rate Blood Pressure O2 Sat by Pulse 100 100 100 Oximetry 06/23/20 06/23/20 06/23/20 01:14 01:18 01:23 Temperature Pulse Rate 75 79 82 Respiratory Rate Blood Pressure 127/66 O2 Sat by Pulse 100 100 Oximetry 06/23/20 06/23/20 06/23/20 01:28 01:33 01:38 Temperature Pulse Rate 77 80 79 Respiratory Rate Blood Pressure O2 Sat by Pulse 100 100 100 Oximetry 06/23/20 06/23/20 06/23/20 01:43 01:48 01:53 Temperature Pulse Rate 82 83 84 Respiratory Rate Blood Pressure 128/62 O2 Sat by Pulse 100 100 100 Oximetry 06/23/20 06/23/20 06/23/20 01:58 02:03 02:08 Temperature Pulse Rate 87 85 90 Respiratory Rate Blood Pressure O2 Sat by Pulse 100 100 100 Oximetry 06/23/20 06/23/20 06/23/20 02:12 02:13 02:18 Temperature Pulse Rate 83 83 80 Respiratory Rate Blood Pressure 130/76 O2 Sat by Pulse 100 100 Oximetry 06/23/20 06/23/20 02:22 02:23 Temperature 98.2 F Pulse Rate 80 Respiratory Rate Blood Pressure O2 Sat by Pulse 100 Oximetry - Exam Breasts: normal Cardiovascular: Regular rate Lungs: Normal air movement Abdomen: Present: normal appearance, soft Vulva: both: normal Uterus: Present: normal FHR: category 1 Uterine Contraction Monitor Mode: Internal Cervical Dilatation: 5 Cervical Effacement Percentage: 100 station: -2 Uterine Contraction Pattern: Irregular Uterine Tone Measurement Phase: Contraction Uterine Contraction Intensity: Mild Extremities: normal Deep Tendon Reflex Grade: Normal +2 - Labs Labs: Abnormal Labs 06/21/20 Unknown RBC 3.45 L Hgb 7.8 L Hct 25.0 L MCV 72 L MCH 22 L RDW 17.2 H Laboratory Results - last 24 hr 06/22/20 10:28 Coronavirus (PCR) Negative
[2020-06-23] MEDS ORDERED: FAMOTIDINE 20 MG/2 ML INJ IV ONE (02:50)
[2020-06-23] MEDS ORDERED: BICITRA ORAL LIQD 30ML PO ONE (02:50)
[2020-06-23] MEDS ORDERED: METOCLOPRAMIDE 10 MG/2 ML INJ IV ONE (02:50)
[2020-06-23] MEDS ORDERED: LIDOCAINE MPF (2%) 20 MG/1 ML VIAL 5 ML ONE ×2 (02:59→04:33)
[2020-06-23] MEDS ORDERED: LACTATED RINGERS 1,000 ML IV SCH (03:00)
[2020-06-23] MEDS ORDERED: ceFAZolin/Water 2 GM/20 ML 2 GM/20 ML SYRINGE IV NR (03:00)
[2020-06-23] MEDS ORDERED: SODIUM CHLORIDE 0.9% 500 ML 500 ML IV ONE (03:11)
[2020-06-23] MEDS ORDERED: miSOPROStol 200 MCG TAB PR ONE (03:13)
[2020-06-23] MEDS ORDERED: METHYLERGONOVINE MALEATE 0.2 MG/ML VIAL IM ONE ×2 (03:13→05:16)
[2020-06-23] MEDS ORDERED: ONDANSETRON 4 MG/2 ML INJ IV PRN (03:36)
[2020-06-23] MEDS ORDERED: HYDROmorphone 1 MG/1 ML INJ IV PRN (03:36)
[2020-06-23] MEDS ORDERED: NALOXONE 0.4 MG/1 ML INJ IV PRN ×2 (03:36→08:24)
--- NOTE | 2020-06-23 03:36 | Anesthesia Day of Surgery ---
Anesthesia Day of Surgery - Day of Surgery Patient Examined: Yes Patient H&P Reviewed: Yes Patient is NPO: Yes Beta Blockers: No Cardiac Clearance: No Pulmonary Clearance: No Ramses's Test: N/A
[2020-06-23] MEDS ORDERED: KETOROLAC 30 MG/1 ML INJ ONE (03:46)
[2020-06-23] MEDS ORDERED: ONDANSETRON 4 MG/2 ML INJ ONE (03:46)
[2020-06-23] MEDS ORDERED: LACTATED RINGERS 1,000 ML ONE (04:17)
[2020-06-23] MEDS ORDERED: OXYTOCIN 10 UNIT/1 ML INJ ONE (04:23)
[2020-06-23] MEDS ORDERED: DEXMEDETOMIDINE 200 MCG/2 ML VIAL IV ONE (04:32)
--- NOTE | 2020-06-23 05:15 | Operative Report ---
Operative Report Operative Report: Date of procedure: June 23, 2020 Pre-operative diagnosis: Intrauterine at 41 weeks with failed labor induction with arrest of dilatation and descent Post-operative diagnosis: Same plus pelvic adhesive disease Procedure name(s): Primary low transverse section Surgeon: Jason Greer MD Communications Coordinator: Radha Fishman, certified nurse knee bolter Anesthesia: Epidural EBL: 900 cc Complications: None Findings: Patient had normal-appearing uterus tubes and ovaries bilaterally with family adhesions between her right adnexa and intestines. Male weight 10 pounds 3 ounces Apgars 8 at 1 minute and 9 and 5 minutes. Meconium-stained fluid and nuchal cord x1 that was easily reduced Specimen(s): Placenta Consent: Indication for section. Patient informed the risks of the surgery include bleeding possibly bleeding heavy enough to require blood transfusion, infection possible damage to bowel bladder ureter. Patient with previous exploratory laparotomy of a abdominal pelvic mass of unknown origin. Explained to the patient that she has increase of adjacent organ damage due to the previous surgery. All questions answered. Patient agrees to proceed Procedure: The patient was brought to the operating room. Her epidural was dosed was placed without any complications. She was then placed in left lateral tilt. Prepped and draped in the usual sterile manner. After testing for adequate anesthesia level, a Pfannenstiel incision was made. This incision was taken down to the fascia. The fascia was then nicked in the midline. This incision was extended out laterally with Wagner scissors. The fascia was then sharply and bluntly from the underlying rectus muscles. The rectus muscles were bluntly and sharply . Adhesions were sharply and bluntly taken down. The peritoneum was then entered with the photo machine operator's fingers. This incision was spread vertically with care not to damage the bladder below. The Brown self- retaining tractor was then placed without any difficulty. The bladder flap was then formed sharply and bluntly with Metzenbaum scissors. A transverse incision was made in lower uterine segment. This incision was extended laterally with the operators fingers. The amniotic sac was then entered bluntly with the photo machine operator's fingers. The infant was delivered from the vertex position. Bulb suction on the mother's abdomen. Cord was double clamped and cut. The was then passed to the nursery personnel who were in attendance. The above scores were given by the nursery personnel. The placenta was then bluntly removed. The uterus was then externalized and wiped clean the remaining pr oducts. The uterine incision was closed in layers. The first incision was closed in a locking manner using 0 Vicryl. This was followed by imbricating stitch also with 0 Vicryl. This closure was hemostatic. The bladder flap was copiously irrigated and found to be hemostatic. The pelvis was copiously irrigated and found to be hemostatic. The uterus was then placed back to the patient's abdomen. The retractors were removed. The rectus muscles were inspected and found to be hemostatic. The fascia was then closed in a running manner using 0 Vicryl. This incision was hemostatic irrigation Bovie. The skin was reapproximated with 4-0 Vicryl subcuticularly. Dermabond was placed over the skin closure. The patient tolerated procedure well. Her urine was clear. The was admitted to the stepdown unit nursery for transitioning. The patient was accompanied to recovery room in good condition. Instrument count correct times 3.
[2020-06-23] MEDS ORDERED: WITCH HAZEL/ GLYCERIN PAD TP PRN (08:24)
[2020-06-23] MEDS ORDERED: LANOLIN/ZINC/DIMETHICONE (LANSINOH) 7 GM TP PRN (08:24)
[2020-06-23] MEDS ORDERED: MAGNESIUM HYDROXIDE (MOM) ORAL LIQD UDC PO PRN (08:24)
[2020-06-23] MEDS ORDERED: SENNOSIDES 8.6 MG TAB PO PRN (08:24)
[2020-06-23] MEDS ORDERED: HYDROCORTISONE 25 MG RECTAL SUPP PR PRN (08:24)
[2020-06-23] MEDS ORDERED: OXYTOCIN DRIP 30 UNITS/500 ML BAG IV SCH (08:24)
[2020-06-23] MEDS: KETOROLAC 30 MG/1 ML INJ IV SCH ×3 (08:39→22:43)
[2020-06-23] MEDS: PRENATAL VIT27-FE FUMARATE-FOLIC ACID VIT TAB PO SCH (10:34)
[2020-06-23] MEDS: MORPHINE 4 MG/1 ML INJ IV PRN ×2 (10:34→16:13)
[2020-06-23] MEDS: ceFAZolin/NS 1 GM/50 ML 1 GM/50 ML BAG IV SCH ×2 (14:06→22:44)
[2020-06-23] MEDS: FERROUS SULFATE 325 MG TAB PO SCH ×3 (14:07→22:44)
[2020-06-23] MEDS ORDERED: MORPHINE 4 MG/1 ML INJ IM ONE (17:21)
[2020-06-23] MEDS: ACETAMINOPHEN 500 MG TAB PO SCH ×2 (17:34→23:07)
[2020-06-23 20:00] LABS: Hemoglobin 5.8 gm/dl (10.1-14.3)
--- NOTE | 2020-06-23 23:15 | Event Note ---
Date: 06/23/20 H/H and VS noted. Patient resting in bed, no complaints, she specifically denies lightheadedness and dizziness with ambulation. +flatus. No evidence of active bleeding. She reviewed the consent and refuse PRBC transfusion. Discussed risk for poor healing/recovery, increased stress on her heart, increased risk for falling and trauma that could be fatal. Options reviewed, she requests a course of PO Fe and recheck h/h in am. She was instructed to call the RN everytime she needs to ambulate for assistance.
[2020-06-24] MEDS: diphenhydrAMINE 25 MG CAP PO PRN ×2 (03:21→22:52)
[2020-06-24] MEDS ORDERED: DIPHtheria,PERTUSSIS(ACELL),TETANUS VACCINE/PF 0.5 ML VIAL IM ONE (04:49)
--- NOTE | 2020-06-24 06:54 | Progress Note ---
Assessment and Plan - Patient Problems (1) Anemia Current Visit: Yes Status: Chronic Qualifiers: Anemia type: other cause Other causes of anemia: acute posthemorrhagic Qualified Code(s): D62 - Acute posthemorrhagic anemia Plan to address problem: H/H noted, patient resting and easily aroused, appropriately responsive. She was informed her H/H has decreased more, she continues to deny symptoms. States her bleeding is light. Again encouraged PRBC transfusion and explained she is a a significant risk for complications and poor postop course with potential long te rm sequela. Strong encouraged PRBC transfusion, state she will talk to her father and then will make a decision. (2) delivery delivered Current Visit: Yes Status: Acute Subjective - Subjective Date of service: 06/24/20 Principal diagnosis: POD#1 C/S, severe anemia Patient reports: flatus Objective - Vital Signs Latest vital signs: Vital Signs Temp Pulse Resp BP BP Pulse Ox 06/24/20 01:36 98.1 F 95 H 18 144/86 100 06/23/20 20:51 98.0 F 112 H 16 147/82 99 06/23/20 20:48 98.0 F 85 18 137/78 100 06/23/20 17:34 20 06/23/20 16:13 22 06/23/20 15:41 98.2 F 79 18 123/80 99 06/23/20 14:07 20 06/23/20 11:55 98.6 F 79 18 136/79 95 06/23/20 10:34 20 06/23/20 08:39 98.1 F 79 20 136/74 99 Intake and Output 06/23/20 06/23/20 06/24/20 14:59 22:59 06:59 Intake Total 650 420 300 Output Total 1150 2200 Balance -500 -1780 300 Intake: IV 50 ANCEF/NS 1 GM/50 ML 1 gm 50 In 50 ml @ 100 mls/hr IV Q8H [facility] Rx#:[id number] Oral 240 120 Intake, Free Water 360 300 300 Output: Urine 1150 2200 Indwelling Catheter 1000 700 Void 1500 Other: Total, Intake Amount 240 120 Total, Output Amount 1000 500 # Voids Void 1 1 - Exam Breasts: Present: deferred Lungs: Present: Normal air movement Abdomen: Present: soft, distention, normal bowel sounds Uterus: Present: other (difficult to palpate) Extremities: Present: normal Incision: Present: normal, dry, intact - Labs Labs: Abnormal lab results 06/23/20 06/24/20 Range/Units 18:51 05:40 Hgb 5.8 L* 5.0 L* (10.1-14.3) gm/dl Hct 18.0 L* D 16.0 L* (30.3-42.9) %
[2020-06-24] MEDS: IBUPROFEN 800 MG TAB PO PRN ×2 (08:55→18:35)
[2020-06-24] MEDS: FERROUS SULFATE 325 MG TAB PO SCH ×3 (08:55→22:51)
--- NOTE | 2020-06-24 09:36 | Progress Note ---
Assessment and Plan Pt with severe anemia post primary . States that she is still deciding if she wants blood transfusion. Will let provider know later. Pt continues to deny symptoms. Will continue to monitor and continue PO iron as desired by patient. Continue with care. Subjective - Subjective Date of service: 06/24/20 (Pt states doing well. ) Principal diagnosis: POD#1 C/S, severe anemia Patient reports: appetite normal, voiding normally, pain well controlled : doing well Objective - Vital Signs Latest vital signs: Vital Signs Temp Pulse Resp BP BP Pulse Ox 06/24/20 08:55 20 06/24/20 07:50 98.2 F 85 18 112/78 06/24/20 04:00 98.8 F 69 16 133/78 06/24/20 01:36 98.1 F 95 H 18 144/86 100 06/23/20 20:51 98.0 F 112 H 16 147/82 99 06/23/20 20:48 98.0 F 85 18 137/78 100 06/23/20 17:34 20 06/23/20 16:13 22 06/23/20 15:41 98.2 F 79 18 123/80 99 06/23/20 14:07 20 06/23/20 11:55 98.6 F 79 18 136/79 95 06/23/20 10:34 20 Intake and Output 06/23/20 06/24/20 06/24/20 22:59 06:59 14:59 Intake Total 420 300 120 Output Total 2200 Balance -1780 300 120 Intake: Oral 120 120 Intake, Free Water 300 300 Output: Urine 2200 Indwelling Catheter 700 Void 1500 Other: Total, Intake Amount 120 120 Total, Output Amount 500 # Voids Void 1 1 1 - Exam Breasts: Present: deferred Cardiovascular: Present: Regular rate Lungs: Present: Clear to auscultation Abdomen: Present: normal appearance, soft, distention, normal bowel sounds Vulva: both: normal Uterus: Present: normal Extremities: Present: normal Deep Tendon Reflex Grade: Normal +2 Incision: Present: normal, dry, intact (No s/sx of infection, no drainage noted. ) - Labs Labs: Abnormal lab results 06/21/20 06/23/20 06/24/20 Range/Units Unknown 18:51 05:40 Hgb 5.8 L* 5.0 L* (10.1-14.3) gm/dl Hct 18.0 L* D 16.0 L* (30.3-42.9) % Crossmatch See Detail
[2020-06-24] MEDS: PRENATAL VIT27-FE FUMARATE-FOLIC ACID VIT TAB PO SCH (10:22)
[2020-06-24] MEDS: DOCUSATE SODIUM 100 MG CAP PO SCH (10:22)
[2020-06-24] MEDS: SIMETHICONE 80 MG CHEW TAB PO PRN (10:22)
--- NOTE | 2020-06-24 13:51 | Event Note ---
Date: 06/24/20 Patient returned from NICU from visiting infant. She denies any orthostatic symptoms. Discussed diagnosis of severe anemia and its risks. Also discussed that at present she has no reserve if for any reason she has any acute blood loss either or is in an accident and had acute bleeding and its risks. Discussed with patient and her significant other. Patient desires not to have transfusion at this time due to her being asymptomatic. We will continue her iron therapy. Precautions given. Will reassess CBC in a.m.
[2020-06-24] MEDS: ACETAMINOPHEN 500 MG TAB PO SCH (18:37)
[2020-06-25] MEDS: ACETAMINOPHEN 500 MG TAB PO SCH (01:48)
[2020-06-25 06:10] LABS: Basophils % (Auto) 0.2 % (0.0-1.8); Eosinophils # (Auto) 0.1 K/mm3 (0.0-0.4); Eosinophils % (Auto) 1.2 % (0.0-4.3); Lymphocytes # (Auto) 1.2 K/mm3 (1.2-5.4); Lymphocytes % (Auto) 10.6 % (13.4-35.0); Mean Corpuscular HGB Conc 31 % (30-34); Mean Corpuscular Volume 72 fl (79-97); Monocytes # (Auto) 0.9 K/mm3 (0.0-0.8); Monocytes % (Auto) 8.3 % (0.0-7.3); Platelet Count 228 K/mm3 (140-440); Red Blood Count 2.22 M/mm3 (3.65-5.03); Red Cell Distribution Width 16.9 % (13.2-15.2)
[2020-06-25] MEDS: FERROUS SULFATE 325 MG TAB PO SCH ×3 (07:55→22:42)
[2020-06-25] MEDS: SIMETHICONE 80 MG CHEW TAB PO PRN (07:55)
[2020-06-25] MEDS: IBUPROFEN 800 MG TAB PO PRN ×2 (07:55→16:07)
--- NOTE | 2020-06-25 08:58 | Progress Note ---
<JAIRO VALDEZ EloyMartha - Last Filed: 06/25/20 10:15> Assessment and Plan A: 25 y.o. s/p primary , post op severe anemia. No drop in H/H from 06/24 draw. Pt is asymptomatic. P: Continue with care. Continue to monitor for s/sx of severe anemia. Anticipate discharge home tomorrow. Subjective - Subjective Date of service: 06/25/20 (Pt states feeling well) Principal diagnosis: POD#1 C/S, severe anemia Patient reports: appetite normal, voiding normally, flatus, ambulating normally [place]: in NICU (On CPAP) Objective - Vital Signs Latest vital signs: Vital Signs Temp Pulse Resp BP BP Pulse Ox 06/25/20 00:17 98.3 F 96 H 20 109/67 95 06/24/20 18:35 20 06/24/20 16:20 97.6 F 95 H 18 117/67 Intake and Output 06/24/20 06/25/20 06/25/20 22:59 06:59 14:59 Intake Total 320 600 Balance 320 600 Intake: Oral 320 240 Intake, Free Water 360 Other: Total, Intake Amount 320 120 # Voids Void 1 1 - Exam Narrative Exam: Pt H/H has remained the same since yesterdays blood draw. Pt is asymptomatic and has remained asymptomatic during admission. She continues to decline transfusion. We discussed the importance of taking iron supplements three times daily. Also if she started to feel short of breath, chest pain, dizzy or lightheaded after discharge she is to call the mineral economist provider and go to the ER immediately for evaluation. BC: she is still undecided but states that it may be the ring or pills. Discussed what to expect after upon discharge home. Pt verbalized understanding of these instructions. Breasts: Present: deferred Cardiovascular: Present: Regular rate Lungs: Present: Normal air movement Abdomen: Present: normal appearance, soft, distention (Some distention noted, but less than 10/10 assessment.), normal bowel sounds Vulva: both: normal Uterus: Present: normal, firm, other (Minimal bleeding noted. ) Extremities: Present: normal Deep Tendon Reflex Grade: Normal +2 Incision: Present: normal, dry, intact (Open to air, intact, no s/sx of infection, no drainage noted. ) - Labs Labs: Abnormal lab results 06/25/20 Range/Units 04:42 RBC 2.22 L (3.65-5.03) M/mm3 Hgb 5.0 L* (10.1-14.3) gm/dl Hct 16.0 L* (30.3-42.9) % MCV 72 L (79-97) fl MCH 23 L (28-32) pg RDW 16.9 H (13.2-15.2) % Lymph % (Auto) 10.6 L (13.4-35.0) % [place] % (Auto) 8.3 H (0.0-7.3) % [place] # (Auto) 0.9 H (0.0-0.8) K/mm3 Seg Neutrophils % 79.7 H (40.0-70.0) % Seg Neutrophils # 8.7 H (1.8-7.7) K/mm3 <MEIR CARPENTER G - Last Filed: 06/25/20 11:51> Assessment and Plan - Patient Problems (1) Acute blood loss anemia Current Visit: Yes Status: Acute Objective - Vital Signs Latest vital signs: Vital Signs Temp Pulse Resp BP BP Pulse Ox 06/25/20 08:20 98.2 F 83 20 153/94 06/25/20 00:17 98.3 F 96 H 20 109/67 95 06/24/20 18:35 20 06/24/20 16:20 97.6 F 95 H 18 117/67 Intake and Output 06/24/20 06/25/20 06/25/20 22:59 06:59 14:59 Intake Total 320 600 240 Balance 320 600 240 Intake: Oral 320 240 240 Intake, Free Water 360 Other: Total, Intake Amount 320 120 240 # Voids Void 1 1 1 - Labs Labs: Abnormal lab results 06/25/20 Range/Units 04:42 RBC 2.22 L (3.65-5.03) M/mm3 Hgb 5.0 L* (10.1-14.3) gm/dl Hct 16.0 L* (30.3-42.9) % MCV 72 L (79-97) fl MCH 23 L (28-32) pg RDW 16.9 H (13.2-15.2) % Lymph % (Auto) 10.6 L (13.4-35.0) % [place] % (Auto) 8.3 H (0.0-7.3) % [place] # (Auto) 0.9 H (0.0-0.8) K/mm3 Seg Neutrophils % 79.7 H (40.0-70.0) % Seg Neutrophils # 8.7 H (1.8-7.7) K/mm3
[2020-06-25] MEDS: DOCUSATE SODIUM 100 MG CAP PO SCH ×3 (10:26→22:42)
[2020-06-25] MEDS: PRENATAL VIT27-FE FUMARATE-FOLIC ACID VIT TAB PO SCH (10:26)
[2020-06-25] MEDS ORDERED: HYDROcodone/ACETAMINOPHEN 5-325 MG TAB PO PRN (22:23)
--- NOTE | 2020-06-26 06:57 | Discharge Summary ---
Providers - Providers Date of Admission: 06/21/20 20:30 Date of discharge: 06/26/20 (pt voiced understands d/c) Attending physician: CARLOS DURAN Primary care physician: CARLOS DURAN Hospitalization Reason for admission: active labor Delivery: Procedure: primary low transverse (failed IOL Arrest of dilatation and descent) Episiotomy: none Laceration: none Incision: normal, dry, intact Other procedures: none complications: none Discharge diagnosis: IUP at term delivered [place] baby: male (remains in NICU) Hospital course: uncomplicated section Pt resting No c/o voiced Just concerned @ son in NICU. VSS FF below umb Lochia small Incision D&I H&H stable anemia but pt is asymptomatic Declines tra nsfusion. Stable s/p section P: d/c today with instructions RTO 1 week Condition at discharge: Good Disposition: DC-01 TO HOME OR SELFCARE - Discharge Diagnoses (1) delivery delivered Status: Acute Comment: RTO 1 week postop care Plan - Discharge Medications Prescriptions: Docusate Sodium [Colace] 100 mg PO BID PRN #60 capsule PRN Reason: Constipation Lidocain2.5%/Prilocai2.5% [Emla] 5 gm TP ONCE #1 tube Ferrous Sulfate [Feosol 325 MG tab] 325 mg PO TID #90 tablet Ibuprofen [Motrin 800 MG tab] 800 mg PO Q6H PRN #30 tablet PRN Reason: Pain oxyCODONE /ACETAMINOPHEN [Percocet 5/325 mg] 1 - 2 tab PO Q6HR PRN #20 tablet PRN Reason: Pain - Provider Discharge Summary Activity: routine, no sex for 6 weeks, no heavy lifting 4 weeks, no strenuous exercise Diet: routine Instructions: routine Additional instructions: [] Smoking cessation referral if applicable(refer to patient education folder for contact #) [] Refer to [facility] Booklet Call your doctor immediately for: * Fever > 100.5 * Heavy vaginal bleeding ( >1 pad per hour) * Severe persistent headache * Shortness of breath * Reddened, hot, painful area to leg or breast * Drainage or odor from incision. * Keep incision clean and dry at all times and follow doctor's instructions regarding bathing/showering - Follow up plan Follow up: CARLOS DURAN MD [Primary Care Provider] - 7 Days (Congratulations! Please call [phone] to schedule your postoperative visit and your son's circumcision in 1 week Bring EMLA cream with you to his visit. Do NOT use at home. Take medication as prescribed. Call with concerns.)
[2020-06-26] MEDS: DOCUSATE SODIUM 100 MG CAP PO SCH (13:50)
[2020-06-26] MEDS: IBUPROFEN 800 MG TAB PO PRN (13:50)
[2020-06-26] MEDS: FERROUS SULFATE 325 MG TAB PO SCH (13:50)
[2020-06-26] MEDS: PRENATAL VIT27-FE FUMARATE-FOLIC ACID VIT TAB PO SCH (13:55)
[2020-06-26 20:07] VITALS: BP 136/82
== END 2020-06-26 14:30 | disposition home or self-care (01) | DRG 765 ==
LOC: LD 20:30 → APU 06-23 06:41 → OB 06-23 08:16
PROVIDERS: ADMIT Obstetrics & Gynecology; ATTEND Obstetrics & Gynecology
PROC: 3E0R3BZ Introduction of Anesthetic Agent into Spinal Canal, Percutaneous Approach (ICD-10-PCS; 2020-06-22)
PROC: 00HU33Z Insertion of Infusion Device into Spinal Canal, Percutaneous Approach (ICD-10-PCS; 2020-06-22)
PROC: 3E033VJ Introduction of Other Hormone into Peripheral Vein, Percutaneous Approach (ICD-10-PCS; 2020-06-22)
PROC: 10D00Z1 Extraction of Products of Conception, Low, Open Approach (ICD-10-PCS; principal; 2020-06-23)
PROC: 3E0234Z Introduction of Serum, Toxoid and Vaccine into Muscle, Percutaneous Approach (ICD-10-PCS; 2020-06-24)
PROC: 3E0134Z Introduction of Serum, Toxoid and Vaccine into Subcutaneous Tissue, Percutaneous Approach (ICD-10-PCS; 2020-06-24)
DX: O99.824 Streptococcus B carrier state complicating childbirth (principal); D62 Acute posthemorrhagic anemia; Z3A.41 41 weeks gestation of pregnancy; O61.0 Failed medical induction of labor; O62.1 Secondary uterine inertia; Z37.0 Single live birth; Z20.828 Contact with and (suspected) exposure to other viral communicable diseases; O90.81 Anemia of the puerperium; O99.893 Other specified diseases and conditions complicating puerperium; N73.6 Female pelvic peritoneal adhesions (postinfective)
CPT/HCPCS: 36415; 85014; 85018; 85025; 85027; 86850; 86900; 86901; 86920; 88307; G0378; A6250; J0290; J0595; J0690; J1885; J2270; J2405; J2590; J2765; J3010; J3490; J7120; U0003-CS